=== PATIENT | male | born 1975 | race Caucasian/White ===

== ENCOUNTER → 2016-08-28 | Outpatient (CLI) | payer BC | LOC: M WUC 14:20 | PROVIDERS: ATTEND Physician Assistant | DX: E29.1 Testicular hypofunction (principal) | CPT/HCPCS: 36415; 84402; 84403; G0103 ==

== ENCOUNTER → 2017-11-23 | Outpatient (CLI) | payer BC ==
[2017-11-25 14:14] LABS: PSA TOTAL 0.7 ng/mL (0.0-4.0)
[2017-11-26 00:07] LABS: TESTOSTERONE FREE (DIRECT) 15.1 pg/mL (6.8-21.5)
== END ==
LOC: M WUC 08:22
DX: E29.1 Testicular hypofunction (principal)
CPT/HCPCS: 84403

== ENCOUNTER → 2018-03-13 | Outpatient (REF) | payer BC ==
[2018-03-13 13:41] LABS: CHOLESTEROL LEVEL 172 MG/DL (<200); CHOLESTEROL RISK RATIO 2.866 (<5); HDL CHOLESTEROL 60 MG/DL (>40); LDL CHOLESTEROL 93.6 MG/DL (<100); NON-HDL-C 112 MG/DL; TRIGLYCERIDES LEVEL 92 MG/DL (<150)
[2018-03-13 13:57] LABS: TOTAL PROTEIN,RANDOM URINE 46.9 MG/DL (0.0-12.0)
== END ==
LOC: M LAB REF 13:11
DX: N04.0 Nephrotic syndrome with minor glomerular abnormality (principal)

== ENCOUNTER → 2018-05-10 | Outpatient (CLI) | payer BC ==
[2018-05-10 18:22] LABS: CHOLESTEROL LEVEL 210 MG/DL (<200); CHOLESTEROL RISK RATIO 3.888 (<5); HDL CHOLESTEROL 54 MG/DL (>40); LDL CHOLESTEROL 131 MG/DL (<100); NON-HDL-C 156 MG/DL; TRIGLYCERIDES LEVEL 125 MG/DL (<150)
[2018-05-10 18:38] LABS: ESTIMATED AVERAGE GLUCOSE 105 MG/DL (60-110); HEMOGLOBIN A1c 5.3 %
== END ==
LOC: M WUC 08:05
DX: I10 Essential (primary) hypertension (principal); R73.01 Impaired fasting glucose
CPT/HCPCS: 83036

== ENCOUNTER → 2019-08-08 | Outpatient (CLI) | payer BC ==
[2019-08-08 14:06] LABS: BASO % 0.8 % (0.0-1.0); EOS # 0.1 10^3/uL (0.0-0.5); EOS % 2.7 % (0.0-3.0); HEMATOCRIT 46.1 % (42.0-52.0); HEMOGLOBIN 14.7 g/dl (13.5-17.5); LYMPH # 1.3 10^3/uL (1.5-5.0); LYMPH % 25.7 % (24.0-44.0); MEAN CORPUSCULAR HEMOGLOBIN 28.8 pg (27.0-33.0); MEAN CORPUSCULAR HGB CONC 31.9 g/dl (32.0-36.5); MEAN CORPUSCULAR VOLUME 90.2 fl (80.0-96.0); MONO # 0.5 10^3/uL (0.0-0.8); MONO % 9.8 % (0.0-5.0); NEUTROPHILS # 3.1 10^3/uL (1.5-8.5); NEUTROPHILS % 59.8 % (36.0-66.0); PLATELET COUNT, AUTOMATED 276 10^3/uL (150-450); RED BLOOD COUNT 5.11 10^6/uL (4.30-6.10); WHITE BLOOD COUNT 5.2 10^3/uL (4.0-10.0)
[2019-08-08 14:22] LABS: ALBUMIN 3.8 GM/DL (3.2-5.2); ALT/SGPT 23 U/L (12-78); BILIRUBIN,TOTAL 0.3 MG/DL (0.2-1.0); BLOOD UREA NITROGEN 13 MG/DL (7-18); CALCIUM LEVEL 8.6 MG/DL (8.5-10.1); CARBON DIOXIDE LEVEL 23 MEQ/L (21-32); CHLORIDE LEVEL 109 MEQ/L (98-107); CREATININE FOR GFR 1.03 MG/DL (0.70-1.30); FREE T4 0.93 NG/DL (0.76-1.46); GLOMERULAR FILTRATION RATE > 60.0 (>60); GLUCOSE, FASTING 98 MG/DL (70-100); POTASSIUM SERUM 4.9 MEQ/L (3.5-5.1); SODIUM LEVEL 140 MEQ/L (136-145); TOTAL PROTEIN 6.6 GM/DL (6.4-8.2)
[2019-08-09 13:11] LABS: VITAMIN B12 LEVEL 370 PG/ML
[2019-08-09 13:12] LABS: FOLATE 7.7 NG/ML
== END ==
LOC: M WUC 08:16
PROVIDERS: ATTEND Physician Assistant
DX: F45.8 Other somatoform disorders (principal); N04.0 Nephrotic syndrome with minor glomerular abnormality

== ENCOUNTER → 2019-09-17 | Outpatient (REF) | payer BC | LOC: M LAB REF 13:28 | PROVIDERS: ATTEND Nurse Practitioner Family | DX: N04.0 Nephrotic syndrome with minor glomerular abnormality (principal) ==

== ENCOUNTER → 2019-09-18 | Outpatient (CLI) | payer BC ==
[2019-09-18 13:14] LABS: CHOLESTEROL RISK RATIO 2.65 (<5)
== END ==
LOC: M WUC 08:59
PROVIDERS: ATTEND Nurse Practitioner Family
DX: N04.0 Nephrotic syndrome with minor glomerular abnormality (principal)

== ENCOUNTER → 2020-03-24 | Outpatient (REF) | payer BC | LOC: M LAB REF 16:57 | PROVIDERS: ATTEND Nurse Practitioner Family | DX: R80.1 Persistent proteinuria, unspecified (principal) ==

== ENCOUNTER → 2020-03-26 | Outpatient (REF) | payer BC ==
[2020-03-28 12:02] LABS: URINE TOTAL PROTEIN 26.4 MG/DL (0-12)
[2020-03-28 12:17] LABS: TOTAL PROTEIN 24 HOUR URINE 653.4 MG/24HR (50-150)
== END ==
LOC: M LAB REF 15:30
PROVIDERS: ATTEND Nurse Practitioner Family
DX: R80.9 Proteinuria, unspecified (principal)

== ENCOUNTER → 2020-09-23 | Outpatient (CLI) | payer BC ==
[2020-09-23 09:11] LABS: BASO % 0.5 % (0.0-1.0); EOS # 0.1 10^3/uL (0.0-0.5); EOS % 2.1 % (0.0-3.0); HEMATOCRIT 48.6 % (42.0-52.0); HEMOGLOBIN 16.1 g/dl (13.5-17.5); LYMPH # 1.5 10^3/uL (1.5-5.0); LYMPH % 23.5 % (24.0-44.0); MEAN CORPUSCULAR HEMOGLOBIN 28.5 pg (27.0-33.0); MEAN CORPUSCULAR HGB CONC 33.1 g/dl (32.0-36.5); MEAN CORPUSCULAR VOLUME 86.2 fl (80.0-96.0); MONO # 0.7 10^3/uL (0.0-0.8); MONO % 10.9 % (2.0-8.0); NEUTROPHILS # 3.9 10^3/uL (1.5-8.5); NEUTROPHILS % 62.5 % (36.0-66.0); PLATELET COUNT, AUTOMATED 278 10^3/uL (150-450); RED BLOOD COUNT 5.64 10^6/uL (4.30-6.10); WHITE BLOOD COUNT 6.3 10^3/uL (4.0-10.0)
[2020-09-23 09:42] LABS: ALBUMIN 4.6 GM/DL (3.2-5.2); ALT/SGPT 36 U/L (12-78); BILIRUBIN,TOTAL 0.6 MG/DL (0.2-1.0); BLOOD UREA NITROGEN 17 MG/DL (7-18); CALCIUM LEVEL 9.6 MG/DL (8.5-10.1); CARBON DIOXIDE LEVEL 28 MEQ/L (21-32); CHLORIDE LEVEL 102 MEQ/L (98-107); CHOLESTEROL LEVEL 199 MG/DL (<200); CHOLESTEROL RISK RATIO 4.326 (<5); CREATININE FOR GFR 1.14 MG/DL (0.70-1.30); FREE T4 1.03 NG/DL (0.76-1.46); GLOMERULAR FILTRATION RATE > 60.0 (>60); GLUCOSE, FASTING 96 MG/DL (70-100); HDL CHOLESTEROL 46 MG/DL (>40); LDL CHOLESTEROL 136 MG/DL (<100); NON-HDL-C 153 MG/DL; POTASSIUM SERUM 5.1 MEQ/L (3.5-5.1); SODIUM LEVEL 135 MEQ/L (136-145); TOTAL PROTEIN 7.9 GM/DL (6.4-8.2); TRIGLYCERIDES LEVEL 86 MG/DL (<150)
== END ==
LOC: M LAB 08:48
PROVIDERS: ATTEND Physician Assistant
DX: N04.0 Nephrotic syndrome with minor glomerular abnormality (principal); E78.2 Mixed hyperlipidemia

== ENCOUNTER → 2020-09-29 | Outpatient (CLI) | payer BC | LOC: M LAB 11:15 | PROVIDERS: ATTEND Physician Assistant | DX: R53.83 Other fatigue (principal); E55.9 Vitamin D deficiency, unspecified ==

== ENCOUNTER → 2021-05-04 | Outpatient (CLI) | payer BC ==
--- NOTE | 2021-05-08 16:41 | SLEEPHOME ---
DATE: 05/04/2021 ORDERED BY: Dr. [facility] home sleep testing was performed due to concern for the obstructive sleep apnea syndrome. For testing, a nocturnal T3 respiratory monitoring device was used. Continuous record was made of pulse, oxygen saturation, air flow, chest and abdominal strain, and body position. There was 11 hours and 59 minutes of data reviewed. There was 7 hours and 7 minutes marked as time in bed. During the interval marked time in bed, there were 152 respiratory events identified of 10 seconds in duration or greater for a respiratory event index of 21.3. The events were primarily obstructive. Baseline pulse rate 81. Pulse rate ranged 66-101. Baseline saturation 94%. Saturations fell to 80%. Testing was performed in both the supine and nonsupine positions. IMPRESSION: Abnormal home sleep testing with repetitive respiratory events and oxygen desaturations to 80% with a respiratory event index of 21.3 is consistent with the obstructive sleep apnea syndrome. RECOMMENDATION: The patient should be encouraged to undergo formal sleep evaluation.
== END ==
LOC: M SLEEP HO 10:24
PROVIDERS: ATTEND Internal Medicine Cardiovascular Disease
DX: G47.33 Obstructive sleep apnea (adult) (pediatric) (principal)

== ENCOUNTER → 2021-05-06 | Outpatient (CLI) | payer BC ==
--- NOTE | 2021-05-06 10:03 | REP ---
INDICATION: LOCALIZED EDEMA / LABS 1ST COMPARISON: None. TECHNIQUE: PA and lateral. FINDINGS: The mediastinum and cardiac silhouette are normal. The lung alvarez are clear and without acute consolidation, effusion, or pneumothorax. The skeletal structures are intact and normal. IMPRESSION: No acute cardiopulmonary process. <Electronically signed by Yazan Renee > 05/06/21 1000
[2021-05-06 10:27] LABS: ALBUMIN 3.8 GM/DL (3.2-5.2); BLOOD UREA NITROGEN 14 MG/DL (7-18); CALCIUM LEVEL 9.2 MG/DL (8.5-10.1); CARBON DIOXIDE LEVEL 23 MEQ/L (21-32); CHLORIDE LEVEL 110 MEQ/L (98-107); CREATININE FOR GFR 0.99 MG/DL (0.70-1.30); GLOMERULAR FILTRATION RATE > 60.0 (>60); GLUCOSE, FASTING 106 MG/DL (70-100); NT-PRO BNP 16 PG/ML (<125); PHOSPHORUS LEVEL 2.5 MG/DL (2.5-4.9); POTASSIUM SERUM 4.6 MEQ/L (3.5-5.1); SODIUM LEVEL 139 MEQ/L (136-145)
== END ==
LOC: M LAB 09:27
PROVIDERS: ATTEND Internal Medicine Cardiovascular Disease
DX: R06.02 Shortness of breath (principal); R60.0 Localized edema; I10 Essential (primary) hypertension

== ENCOUNTER → 2021-11-09 | Outpatient (REF) | payer OTHER, BC ==
[2021-11-09 17:38] LABS: CREATININE,RANDOM URINE 87.6 MG/DL; TOTAL PROTEIN,RANDOM URINE 112.5 MG/DL (0.0-12.0)
== END ==
LOC: M LAB REF 16:42
PROVIDERS: ATTEND Nurse Practitioner Family
DX: N04.0 Nephrotic syndrome with minor glomerular abnormality (principal)

== ENCOUNTER → 2022-01-06 | Outpatient (CLI) | payer OTHER ==
[2022-01-06 09:41] LABS: BASO % 0.6 % (0.0-1.0); EOS # 0.1 10^3/uL (0.0-0.5); EOS % 2.3 % (0.0-3.0); HEMATOCRIT 46.4 % (42.0-52.0); LYMPH # 1.3 10^3/uL (1.5-5.0); LYMPH % 23.7 % (24.0-44.0); MEAN CORPUSCULAR HEMOGLOBIN 29.2 pg (27.0-33.0); MEAN CORPUSCULAR HGB CONC 34.5 g/dl (32.0-36.5); MEAN CORPUSCULAR VOLUME 84.7 fl (80.0-96.0); MONO # 0.5 10^3/uL (0.0-0.8); MONO % 9.3 % (2.0-8.0); NEUTROPHILS # 3.3 10^3/uL (1.5-8.5); NEUTROPHILS % 63.3 % (36.0-66.0); PLATELET COUNT, AUTOMATED 246 10^3/uL (150-450); RED BLOOD COUNT 5.48 10^6/uL (4.30-6.10); WHITE BLOOD COUNT 5.3 10^3/uL (4.0-10.0)
[2022-01-06 10:17] LABS: ALBUMIN 3.9 GM/DL (3.2-5.2); ALT/SGPT 35 U/L (12-78); BILIRUBIN,TOTAL 0.4 MG/DL (0.2-1.0); BLOOD UREA NITROGEN 14 MG/DL (7-18); CALCIUM LEVEL 9.6 MG/DL (8.5-10.1); CARBON DIOXIDE LEVEL 25 MEQ/L (21-32); CHLORIDE LEVEL 105 MEQ/L (98-107); CHOLESTEROL LEVEL 185 MG/DL (<200); CHOLESTEROL RISK RATIO 3.245 (<5); CREATININE FOR GFR 0.98 MG/DL (0.70-1.30); FREE T4 0.93 NG/DL (0.76-1.46); GLOMERULAR FILTRATION RATE > 60.0 (>60); GLUCOSE, FASTING 111 MG/DL (70-100); HDL CHOLESTEROL 57 MG/DL (>40); LDL CHOLESTEROL 112 MG/DL (<100); NON-HDL-C 128 MG/DL; POTASSIUM SERUM 4.8 MEQ/L (3.5-5.1); SODIUM LEVEL 138 MEQ/L (136-145); TOTAL PROTEIN 7.3 GM/DL (6.4-8.2); TRIGLYCERIDES LEVEL 78 MG/DL (<150)
[2022-01-06 10:40] LABS: HEMOGLOBIN A1c 5.8 %
== END ==
LOC: M LAB 08:15
PROVIDERS: ATTEND Physician Assistant
DX: E29.1 Testicular hypofunction (principal)

== ENCOUNTER → 2022-09-13 | Outpatient (REF) | payer OTHER ==
[2022-09-13 17:29] LABS: TOTAL PROTEIN,RANDOM URINE 80.8 MG/DL (0.0-14.0)
[2022-09-13 17:34] LABS: CREATININE,RANDOM URINE 127.7 MG/DL
== END ==
LOC: M LAB REF 16:36
PROVIDERS: ATTEND Nurse Practitioner Family
DX: N04.0 Nephrotic syndrome with minor glomerular abnormality (principal)

== ENCOUNTER → 2022-10-21 | Outpatient (CLI) | payer OTHER | LOC: M RAD 08:06 | PROVIDERS: ATTEND Nurse Practitioner Family | DX: N17.9 Acute kidney failure, unspecified (principal) ==

== ENCOUNTER → 2023-03-10 | Outpatient (CLI) | payer OTHER ==
[2023-03-10 17:42] LABS: BASO % 0.4 % (0.0-1.0); EOS # 0.1 10^3/uL (0.0-0.5); EOS % 2.1 % (0.0-3.0); HEMATOCRIT 46.4 % (42.0-52.0); HEMOGLOBIN 15.6 g/dl (13.5-17.5); LYMPH # 1.1 10^3/uL (1.5-5.0); LYMPH % 19.9 % (24.0-44.0); MEAN CORPUSCULAR HEMOGLOBIN 29.8 pg (27.0-33.0); MEAN CORPUSCULAR HGB CONC 33.6 g/dl (32.0-36.5); MEAN CORPUSCULAR VOLUME 88.5 fl (80.0-96.0); MONO # 0.5 10^3/uL (0.0-0.8); MONO % 9.1 % (2.0-8.0); NEUTROPHILS # 3.8 10^3/uL (1.5-8.5); NEUTROPHILS % 68.1 % (36.0-66.0); PLATELET COUNT, AUTOMATED 256 10^3/uL (150-450); RED BLOOD COUNT 5.24 10^6/uL (4.30-6.10); WHITE BLOOD COUNT 5.6 10^3/uL (4.0-10.0)
[2023-03-10 17:43] LABS: ALBUMIN 4.4 G/DL (3.2-5.2); ALKALINE PHOSPHATASE 73 U/L (46-116); ALT/SGPT 30 U/L (7.0-40); AST/SGOT 16 U/L (<34); BILIRUBIN,TOTAL 0.6 MG/DL (0.3-1.2); BLOOD UREA NITROGEN 12 MG/DL (9-23); CALCIUM LEVEL 9.6 MG/DL (8.5-10.1); CARBON DIOXIDE LEVEL 24 MMOL/L (20-31); CHLORIDE LEVEL 105 MMOL/L (98-107); GLOMERULAR FILTRATION RATE > 60.0 (>60); GLUCOSE, FASTING 105 MG/DL (60-100); POTASSIUM SERUM 4.2 MMOL/L (3.5-5.1); SODIUM LEVEL 141 MMOL/L (136-145); TOTAL PROTEIN 7.2 G/DL (5.7-8.2)
[2023-03-10 18:12] LABS: HEMOGLOBIN A1c 5.7 % (4.0-6.0)
== END ==
LOC: M WUC 11:01
PROVIDERS: ATTEND Physician Assistant
DX: Z00.00 Encounter for general adult medical examination without abnormal findings (principal); R73.01 Impaired fasting glucose
CPT/HCPCS: 36415; 80053; 83036; 85025; G0103

== ENCOUNTER 2023-05-29 08:03 | Day surgery (SDC) | payer BC ==
[~2023-05-29] VITALS: Ht 177.8 cm; Wt 109.3 kg
[~2023-05-29 08:03] MED LIST: CHLO125TA PO; LISI20TA33 PO; NS 1,000 ML IV ONE; SPIR-10 PO; ZOLP10TA2 PO
[2023-05-29 10:00] VITALS: TEMP 96.7
[2023-05-29 10:20] VITALS: O2SAT 100
[2023-05-29 10:28] VITALS: BP 111/70
== END 2023-05-29 10:28 | disposition home or self-care (01) ==
LOC: M OPP 08:03
PROVIDERS: ATTEND Surgery
DX: Z12.11 Encounter for screening for malignant neoplasm of colon (principal); D12.6 Benign neoplasm of colon, unspecified; K57.30 Diverticulosis of large intestine without perforation or abscess without bleeding; Z87.891 Personal history of nicotine dependence; Z79.899 Other long term (current) drug therapy

== ENCOUNTER → 2023-08-11 | Outpatient (CLI) | payer BC ==
[~2023-08-11] MED LIST changes: -NS 1,000 ML IV ONE
[2023-08-11 11:15] LABS: BASO % 0.7 % (0.0-1.0); EOS # 0.1 10^3/uL (0.0-0.5); EOS % 1.7 % (0.0-3.0); HEMATOCRIT 46.2 % (42.0-52.0); HEMOGLOBIN 15.8 g/dl (13.5-17.5); LYMPH # 1.1 10^3/uL (1.5-5.0); LYMPH % 26.8 % (24.0-44.0); MEAN CORPUSCULAR HEMOGLOBIN 30.3 pg (27.0-33.0); MEAN CORPUSCULAR HGB CONC 34.2 g/dl (32.0-36.5); MEAN CORPUSCULAR VOLUME 88.5 fl (80.0-96.0); MONO # 0.3 10^3/uL (0.0-0.8); MONO % 7.7 % (2.0-8.0); NEUTROPHILS # 2.6 10^3/uL (1.5-8.5); NEUTROPHILS % 62.6 % (36.0-66.0); PLATELET COUNT, AUTOMATED 247 10^3/uL (150-450); RED BLOOD COUNT 5.22 10^6/uL (4.30-6.10); WHITE BLOOD COUNT 4.2 10^3/uL (4.0-10.0)
[2023-08-11 11:50] LABS: ALBUMIN 4.5 G/DL (3.2-5.2); ALKALINE PHOSPHATASE 68 U/L (46-116); ALT/SGPT 27 U/L (7.0-40); AST/SGOT 22 U/L (<34); BILIRUBIN,TOTAL 0.4 MG/DL (0.3-1.2); BLOOD UREA NITROGEN 9 MG/DL (9-23); CARBON DIOXIDE LEVEL 28 MMOL/L (20-31); CHLORIDE LEVEL 105 MMOL/L (98-107); CHOLESTEROL LEVEL 199 MG/DL (<200); CHOLESTEROL RISK RATIO 3.46 (<5); CREATININE FOR GFR 0.74 MG/DL (0.70-1.30); GLOMERULAR FILTRATION RATE > 60.0 (>60); GLUCOSE, FASTING 98 MG/DL (60-100); HDL CHOLESTEROL 57.5 MG/DL (>40); LDL CHOLESTEROL 117.1 MG/DL (<100); NON-HDL-C 141.5 MG/DL; POTASSIUM SERUM 4.7 MMOL/L (3.5-5.1); SODIUM LEVEL 140 MMOL/L (136-145); TOTAL PROTEIN 7.5 G/DL (5.7-8.2); TRIGLYCERIDES LEVEL 122 MG/DL (<150)
[2023-08-11 11:51] LABS: FREE T4 1.25 NG/DL (0.89-1.76)
[2023-08-11 11:52] LABS: THYROID STIMULATING HORMONE 1.723 uIU/ML (0.55-4.78); TOTAL 25(OH) VITAMIN D 23.7 NG/ML (20.0-100.0)
[2023-08-11 11:55] LABS: HEMOGLOBIN A1c 5.5 % (4.0-6.0)
[2023-08-12 16:11] LABS: TESTOSTERONE FREE (DIRECT) 9.4 pg/mL (6.8-21.5)
== END ==
LOC: M LAB 10:37
PROVIDERS: ATTEND Family Medicine
DX: E29.1 Testicular hypofunction (principal); R73.01 Impaired fasting glucose; I12.9 Hypertensive chronic kidney disease with stage 1 through stage 4 chronic kidney disease, or unspecified chronic kidney disease
CPT/HCPCS: 36415; 80053; 80061; 82306; 83036; 84402; 84403; 84439; 84443; 85025; G0103

== ENCOUNTER → 2024-11-12 | Outpatient (REF) | payer BC ==
[2024-11-12 17:48] LABS: TOTAL PROTEIN,RANDOM URINE 114.5 MG/DL (0.0-14.0)
[2024-11-12 17:53] LABS: CREATININE,RANDOM URINE 74.1 MG/DL
== END ==
LOC: M LAB REF 16:50
PROVIDERS: ATTEND Nurse Practitioner Family
DX: N04.0 Nephrotic syndrome with minor glomerular abnormality (principal)

== ENCOUNTER → 2025-02-28 | Outpatient (CLI) | payer BC ==
[2025-02-28 08:55] LABS: BASO # 0.0 10^3/uL (0.0-0.2); BASO % 0.7 % (0.0-1.0); EOS # 0.5 10^3/uL (0.0-0.5); EOS % 8.5 % (0.0-3.0); LYMPH # 1.2 10^3/uL (1.5-5.0); LYMPH % 20.7 % (24.0-44.0); MONO # 0.5 10^3/uL (0.0-0.8); MONO % 8.8 % (2.0-8.0); NEUTROPHILS # 3.5 10^3/uL (1.5-8.5); NEUTROPHILS % 60.9 % (36.0-66.0); PLATELET COUNT, AUTOMATED 290 10^3/uL (150-450)
[2025-02-28 09:32] LABS: ALT/SGPT 25 U/L (7.0-40); AST/SGOT 19 U/L (<34); CALCIUM LEVEL 9.8 MG/DL (8.5-10.1); CARBON DIOXIDE LEVEL 27 MMOL/L (20-31); CHLORIDE LEVEL 103 MMOL/L (98-107); CHOLESTEROL LEVEL 202 MG/DL (<200); CHOLESTEROL RISK RATIO 3.84 (<5); CREATININE FOR GFR 0.88 MG/DL (0.70-1.30); FREE T4 1.41 NG/DL (0.89-1.76); GLOMERULAR FILTRATION RATE > 90.0 (>60); LDL CHOLESTEROL 124.8 MG/DL (<100); NON-HDL-C 149.4 MG/DL; POTASSIUM SERUM 4.9 MMOL/L (3.5-5.1); PTH INTACT 25.6 PG/ML (18.5-88.0); SODIUM LEVEL 139 MMOL/L (136-145); TRIGLYCERIDES LEVEL 123 MG/DL (<150)
[2025-02-28 09:53] LABS: ESTIMATED AVERAGE GLUCOSE 108.0 MG/DL (60-110)
== END ==
LOC: M LAB 07:51
PROVIDERS: ATTEND Physician Assistant
DX: E78.00 Pure hypercholesterolemia, unspecified (principal); R53.83 Other fatigue; N04.0 Nephrotic syndrome with minor glomerular abnormality

== ENCOUNTER → 2025-07-08 | Outpatient (REF) | payer BC ==
[~2025-07-08] MED LIST changes: +ZOLP10TA11 PO; -ZOLP10TA2 PO
== END ==
LOC: M LAB REF 15:08
PROVIDERS: ATTEND Family Medicine
DX: L02.11 Cutaneous abscess of neck (principal)